=== PATIENT | male | born 1965 ===

== ENCOUNTER 2018-01-11 08:35 | Emergency (ER) | payer SELFPAY ==
[2018-01-11 08:40] VITALS: BP 119/79; PULSE 105; RESP 18; TEMP 98.2; O2SAT 96
--- NOTE | 2018-01-11 09:33 | C.PDOC ---
History Of Present Illness 52 y/o male presents to the ER complaining of lesions to the lower left lateral extremity. Patient states that he had small abscess which was drained. Patient reports that he had another abscess which he squeezed. He notes that he has an abscess for the third time, the abscess is painful. Patient is also complaining of pain to the bottom of bilateral feet, the pain is concentrated mainly in the instep and heel. He notes that he has to constantly stand and walk for 12 hours at his job. Denies having fever, chills, nausea, and vomiting. Time Seen by Provider: 01/11/18 09:10 Chief Complaint (Nursing): Abnormal Skin Integrity History Per: Patient History/Exam Limitations: no limitations Onset/Duration Of Symptoms: Days Current Symptoms Are (Timing): Still Present Past Medical History Reviewed: Historical Data, Nursing Documentation, Vital Signs Vital Signs: Last Vital Signs Temp 98.2 F 01/11/18 08:38 Pulse 105 H 01/11/18 08:38 Resp 18 01/11/18 08:38 BP 119/79 01/11/18 08:38 Pulse Ox 96 01/11/18 14:29 - Medical History PMH: No Chronic Diseases Other Surgeries: Hx of surgeries Family History: States: No Known Family Hx - Social History Hx Alcohol Use: No Hx Substance Use: No - Immunization History Hx Tetanus Toxoid Vaccination: No Hx Influenza Vaccination: No Hx Pneumococcal Vaccination: No Review Of Systems Except As Marked, All Systems Reviewed And Found Negative. Constitutional: Negative for: Fever, Chills Musculoskeletal: Positive for: Foot Pain Skin: Positive for: Other (lesions to left lower extremity) Physical Exam - Physical Exam Appears: Non-toxic, No Acute Distress Skin: Normal Color, Warm, Dry, Other (three lesions on the lateral aspect of LLE at different stages of healing , newest lesion: induration, no fluctuance) Head: Atraumatic, Normacephalic Eye(s): bilateral: Normal Inspection Nose: Normal Oral Mucosa: Moist Neck: Supple Chest: Symmetrical Extremity: Normal ROM, Tenderness (tenderness to plantar surfaces of bilateral feet), No Swelling Neurological/Psych: Oriented x3, Normal Speech ED Course And Treatment O2 Sat by Pulse Oximetry: 96 (RA) Pulse Ox Interpretation: Normal Medical Decision Making Medical Decision Making: Patient has been instructed about plantar fasciitis. Patient has been discharged with prescription for Clindamycin for folliculitis and instructed to follow up in medical clinic. Disposition Counseled Patient/Family Regarding: Diagnosis, Need For Followup, Rx Given - Disposition Referrals: [facility] [Outside] Disposition: HOME/ ROUTINE Disposition Time: 09:31 Condition: STABLE Prescriptions: Clindamycin [Cleocin] 1 cap PO QID #30 cap Instructions: Folliculitis Forms: Gen Discharge Inst Mongolian, Cognitive Code Connect (Mongolian), Work Excuse - POA Present On Arrival: None - Clinical Impression Clinical Impression: Folliculitis - Scribe Statement The provider has reviewed the documentation as recorded by the Tomasaibe Patricia Moser Provider Attestation: All medical record entries made by the Scribe were at my direction and personally dictated by me. I have reviewed the chart and agree that the record accurately reflects my personal performance of the history, physical exam, medical decision making, and the department course for this patient. I have also personally directed, reviewed, and agree with the discharge instructions and disposition.
== END 2018-01-11 09:38 | disposition home or self-care (01) ==
LOC: C.ER 08:35
DX: L73.9 Follicular disorder, unspecified (principal)